=== PATIENT | male | born 2000 | race Caucasian/White ===

== ENCOUNTER 2022-09-03 11:30 | Outpatient (CLI) | payer BC, SELFPAY ==
[2022-09-03 21:06] LABS: Vitamin D 25 Hydroxy 37.9 ng/mL
[2022-09-03 21:34] LABS: Alanine Aminotransferase 18 U/L (6-50); Alkaline Phosphatase 93 U/L (38-126); Anion Gap 7 mmol/L (8-16); Aspartate Amino Transferase 31 U/L (17-59); Bilirubin,Total 1.3 mg/dL (0.2-1.3); Blood Urea Nitrogen 10 mg/dL (9-20); Calcium 9.6 mg/dL (8.4-10.2); Carbon Dioxide 28 mmol/L (22-30); Chloride 102 mmol/L (98-107); Estimated Glomerular Filt Rate > 60; Glucose 92 mg/dL (65-110); Potassium 4.3 mmol/L (3.4-5.0); Sodium 137 mmol/L (137-145)
[2022-09-03 21:44] LABS: Basophils Percent Auto 0.4 % (0.2-1.2); Eosinophils Absolute Auto 0.4 K/mm3 (0-0.3); Eosinophils Percent Auto 4.4 % (0-4.4); Hematocrit 45.5 % (42.0-52.0); Hemoglobin 14.8 g/dL (14.0-18.0); Immature Granulocyte Absolute 0.02 K/mm3 (0.00-0.031); Immature Granulocyte Percent A 0.3 % (0-0.5); Lymphocytes Absolute Auto 1.15 K/mm3 (0.9-3.2); Lymphocytes Percent Auto 14.4 % (18.3-44.2); Mean Corpuscular HGB Conc 32.5 g/dl (32-36); Mean Corpuscular Hemoglobin 30.5 pg (26-34); Mean Corpuscular Volume 93.8 fl (80-100); Mean Platelet Volume 10.9 fl (7.4-10.4); Monocytes Absolute Auto 0.6 K/mm3 (0.1-0.6); Monocytes Percent Auto 7.8 % (2.6-8.5); Neutrophils Absolute Auto 5.8 K/mm3 (1.3-6.7); Neutrophils Percent Auto 72.7 % (45.5-73.1); Platelet Count Result 253 k/mm3 (150-375); Red Blood Count 4.85 M/mm3 (4.6-6.20); Red Cell Distribution Width 11.9 % (11.5-14.5)
== END 2022-09-03 11:31 | disposition home or self-care (01) ==
LOC: ANHGOSHLAB 11:32
PROVIDERS: PCP Family Medicine; Visit Provider Family Medicine
DX: Z13.228 Encounter for screening for other metabolic disorders (principal); E55.9 Vitamin D deficiency, unspecified; R53.83 Other fatigue; Z13.29 Encounter for screening for other suspected endocrine disorder
CPT/HCPCS: 36415; 80053; 82306; 84443; 85025

== ENCOUNTER 2024-05-05 21:40 | Emergency (ER) | payer BC, SELFPAY ==
--- NOTE | ~2024-05-05 | XR_ITS ---
XR chest 2V Ordering provider: Patrice Torres History: 23 years Male with . sob . Comparison: None. FINDINGS: MEDIASTINUM: The cardiac silhouette is not enlarged. LUNGS: No infiltrates, effusions or pneumothorax. OTHER: No free air under the diaphragm. IMPRESSION: No acute cardiopulmonary pathology. Reviewed, dictated and finalized at location A.
--- NOTE | 2024-05-05 21:40 | ECG_ITS ---
Test Date: 2024-05-05 22:16:11 Measurements Intervals [place] Rate: 101 P: 64 NC: 128 QRS: 86 QRSD: 84 T: 68 QT: 315 QTc: 409 Interpretive Statements SINUS TACHYCARDIA OTHERWISE WITHIN NORMAL LIMITS No previous ECG available for comparison Electronically Signed On 05-06-2024 07:21:10 CDT by Jarret Woods M.D.
[2024-05-05 22:12] VITALS: BP 108/79; PULSE 87; RESP 20; TEMP 37; O2SAT 96
[2024-05-05 22:59] LABS: Influenza A QL RT-PCR Negative (Negative); Influenza B QL RT-PCR Negative (Negative); RSV RNA, RT-PCR Negative (Negative); SARS-CoV-2 RNA PCR Negative (Negative)
[2024-05-05 23:46] VITALS: PULSE 80; O2SAT 97
[2024-05-06] VITALS: BP 123/76; PULSE 77; RESP 18; TEMP 36.7; O2SAT 100; O2SAT 97
[2024-05-06 00:26] LABS: Basophils Percent Auto 0.5 % (0.2-1.2); Eosinophils Absolute Auto 0.7 K/mm3 (0-0.3); Eosinophils Percent Auto 8.2 % (0-4.4); Hematocrit 45.3 % (42.0-52.0); Hemoglobin 15.3 g/dL (14.0-18.0); Immature Granulocyte Absolute 0.03 K/mm3 (0.00-0.031); Immature Granulocyte Percent A 0.4 % (0-0.5); Lymphocytes Absolute Auto 1.48 K/mm3 (0.9-3.2); Lymphocytes Percent Auto 18.1 % (18.3-44.2); Mean Corpuscular HGB Conc 33.8 g/dl (32-36); Mean Corpuscular Hemoglobin 31.5 pg (26-34); Mean Corpuscular Volume 93.4 fl (80-100); Mean Platelet Volume 9.7 fl (7.4-10.4); Monocytes Absolute Auto 0.8 K/mm3 (0.1-0.6); Neutrophils Absolute Auto 5.1 K/mm3 (1.3-6.7); Neutrophils Percent Auto 62.8 % (45.5-73.1); Platelet Count Result 238 k/mm3 (150-375); Red Blood Count 4.85 M/mm3 (4.6-6.20); Red Cell Distribution Width 11.9 % (11.5-14.5); White Blood Count 8.2 K/mm3 (4.5-10.0)
[2024-05-06 00:39] LABS: Alanine Aminotransferase 16 U/L (6-50); Albumin Level 4.7 g/dL (3.5-5.1); Alkaline Phosphatase 97 U/L (38-126); Anion Gap 7 mmol/L (4-12); Aspartate Amino Transferase 25 U/L (17-59); Bilirubin,Total 0.9 mg/dL (0.2-1.3); Blood Urea Nitrogen 8 mg/dL (9-20); Calcium 9.5 mg/dL (8.4-10.2); Carbon Dioxide 29 mmol/L (22-30); Chloride 104 mmol/L (98-107); Estimated CRCL calculation 104 ml/min; Estimated Glomerular Filt Rate > 60; Glucose 93 mg/dL (65-110); Potassium 4.5 mmol/L (3.4-5.0); Sodium 140 mmol/L (137-145)
--- NOTE | 2024-05-06 01:00 | ED.GENADULT ---
HPI - General Adult General Chief complaint: Shortness of Breath/Dyspnea Stated complaint: dificulty breathing Time Seen by Provider: 05/06/24 00:23 History of Present Illness HPI narrative: [age] year old male presented to the emergency department for evaluation for increased chest tightness and shortness of breath. Patient states this has been occurring more frequently but was worse tonight. Patient states since the episode started is improved. Patient denies any current chest pain or chest tightness. Patient does report a childhood history of asthma. Patient does not smoke but does vape. Related Data Allergies Allergy/AdvReac Type Severity Reaction Status Date / Time No Known Allergies Allergy Verified 05/05/24 21:48 Review of Systems Review of Systems: All systems reviewed & are unremarkable except as noted in HPI and below PMFSH Social History Social History Smoking status: Never smoker Tobacco type: e-cigarettes/vaping Alcohol intake: current Drinks per week: 3 Substance use: never Lack of Transportation: No Lack of Food: Never True Current Housing: I Have Housing Concerned About Future Housing: No Difficulty Paying Gas/Electric Bills: No Difficulty Paying for Meds: No Currently Unemployed: No Education: High School Diploma/GED Difficulty w/ Childcare or Family Care: No Living arrangements: with family Occupation/Education: occupation Gender identity (if verbalized by the patient): Male Sexual Orientation (if Verbalized by the Patient): Straight or Heterosexual Spiritual care concerns: No Agree to blood products: Yes Exam Narrative: APPEARANCE: Well appearing, no pain, no distress, well-nourished. HEAD: normocephalic, atraumatic. EYES: PERRLA/EOMI, conjunctivae clear. NOSE: Normal no drainage EARS:TMS clear with good light reflex. THROAT: Pharynx clear, no exudate. NECK: Supple. No adenopathy, no masses. RESPIRATORY: Airway patent, respirations nonlabored. Clear to auscultation bilaterally, no rales, rhonchi, wheezing. CARDIOVASCULAR: Regular rate and rhythm without murmurs rubs or gallops. ABDOMINAL: Soft, nontender, nondistended, normal bowel sounds MUSCULOSKELETAL: Moves all extremities. Strength/ROM intact, No edema, No calf tenderness. NEURO: Alert. Cranial nerves II through XII intact. SKIN: Warm, dry. Normal Color Course Course Emergency Course: Patient did feel improved after the breathing treatment and was discharged home with albuterol inhaler. Vital Signs Vital signs: Vital Signs Temperature 98.6 F 05/05/24 22:12 Pulse Rate 87 05/05/24 22:12 Respiratory Rate 20 05/05/24 22:12 Blood Pressure 108/79 05/05/24 22:12 Pulse Oximetry 96 05/05/24 22:12 Temperature 97.8 F 05/06/24 02:18 Pulse Rate 90 05/06/24 02:18 Respiratory Rate 18 05/06/24 02:18 Blood Pressure 123/76 05/06/24 02:18 Pulse Oximetry 99 05/06/24 02:19 Oxygen Delivery Room Air 05/06/24 02:19 Medical Decision Making MDM Narrative Medical decision making narrative: 23-year-old male presenting ED for evaluation for intermittent shortness of breath and wheeze. Patient is afebrile with no leukocytosis and a stable hemoglobin of 15.3. Patient has no acute abnormalities on his CMP patient was negative for influenza RSV and for COVID. Chest x-ray shows no acute cardiopulmonary abnormality. Patient was treated with breathing treatment did feel improved. Suspect patient does have some seasonal allergies this may be contributing to some of his symptoms. Patient was advised to take a mild decongestant Differential Diagnosis Differential Diagnosis: Bronchospasm, seasonal allergies, COVID, RSV, influenza, pneumonia, postnasal drip Vital Signs Vital Signs: Vital Signs Temperature 98.6 F 05/05/24 22:12 Pulse Rate 87 05/05/24 22:12 Respiratory Rate 20 05/05/24 22:12 Blood Pre
[2024-05-06 01:58] VITALS: PULSE 67; RESP 17
[2024-05-06] MEDS: ALBUTEROL SULFATE NEB 2.5 MG/3 ML INH INHALATION (01:58)
[2024-05-06 02:03] VITALS: PULSE 68; RESP 17
[2024-05-06 02:18] VITALS: BP 123/76; PULSE 90; RESP 18; TEMP 36.6; O2SAT 99
[2024-05-06 02:19] VITALS: O2SAT 99
== END 2024-05-06 02:19 | disposition home or self-care (01) ==
PROVIDERS: Emergency Provider Emergency Medicine; PCP Family Medicine
DX: J98.01 Acute bronchospasm (principal); R00.0 Tachycardia, unspecified; F17.290 Nicotine dependence, other tobacco product, uncomplicated
CPT/HCPCS: 36415; 71046; 80053; 85025; 87637; 93005; 94640; 99284